=== PATIENT | male | born 1985 | race Caucasian/White ===

== ENCOUNTER 2018-05-13 08:58 | Emergency (ER) | payer BC ==
[2018-05-13] MEDS ORDERED: Sodium Chloride 0.9% 1,000 ML IV ONE (09:13)
--- NOTE | 2018-05-13 09:16 | EDM.PDOC ---
ED HPI GENERAL MEDICAL PROBLEM - General Stated Complaint: FLU SYMPTOMS Time Seen by Provider: 05/13/18 09:07 - History of Present Illness INITIAL COMMENTS - FREE TEXT/NARRATIVE: HISTORY AND PHYSICAL: History of present illness: Patient is a 33-year-old white male with history of seizure disorder who presents with concern approximately 4 days of cough body aches that now is developing some fever and shaking chills he denies shortness of breath there's been no abdominal pain no nausea no vomiting or other complaints he denies influenza immunization this year Review of systems: As per history of present illness and below otherwise all systems reviewed and negative. Past medical history: As per history of present illness and as reviewed below otherwise noncontributory. Surgical history: As per history of present illness and as reviewed below otherwise noncontributory. Social history: No reported history of drug or alcohol abuse. Family history: As per history of present illness and as reviewed below otherwise noncontributory. Physical exam: HEENT: Atraumatic, normocephalic, pupils reactive, negative for conjunctival pallor or scleral icterus, mucous membranes moist, throat clear, neck supple, nontender, trachea midline. Lungs: Clear to auscultation, breath sounds equal bilaterally, chest nontender. Heart: S1S2, regular, negative for clicks, rubs, or JVD. Abdomen: Soft, nondistended, nontender. Negative for masses or hepatosplenomegaly. Negative for costovertebral tenderness. Pelvis: Stable nontender. Genitourinary: Deferred. Rectal: Deferred. Extremities: Atraumatic, negative for cords or calf pain. Neurovascular unremarkable. Neuro: Awake, alert, oriented. Cranial nerves II through XII unremarkable. Cerebellum unremarkable. Motor and sensory unremarkable throughout. Exam nonfocal. Diagnostics: CBC CMP chest x-ray influenza screen blood culture 2 Therapeutics: Normal saline 1 L bolus Impression: #1 viral syndrome Definitive disposition and diagnosis as appropriate pending reevaluation and review of above. - Related Data Allergies Allergy/AdvReac Type Severity Reaction Status Date / Time No Known Allergies Allergy Verified 05/13/18 09:16 Home Meds: Home Meds levETIRAcetam [Keppra] 1.5 mg PO BID 05/13/18 [History] ED ROS GENERAL - Review of Systems Review Of Systems: ROS reveals no pertinent complaints other than HPI. ED EXAM, GENERAL - Physical Exam Exam: See Below (See dictation) Course - Vital Signs Text/Narrative:: Patient emergency room course is been unremarkable he is markedly improved I discussed with him and his that we have not identified any clear source for his symptoms but he has improved I did discuss the viral presentations and other medical conditions are more occult or possible. Blood cultures were obtained U remains nontoxic appearing with stable vital signs Last Recorded V/S: Last Vital Signs Temp 36.1 C 05/13/18 09:17 Pulse 85 05/13/18 09:17 Resp 18 05/13/18 09:17 BP 143/86 H 05/13/18 09:17 Pulse Ox 98 05/13/18 09:17 - Orders/Labs/Meds Orders: Active Orders 24 hr Category Date Time Status CULTURE BLOOD [BC] Stat Lab 05/13/18 09:20 Received CULTURE BLOOD [BC] Stat Lab 05/13/18 09:27 Received Blood Culture x2 Reflex Set [OM.PC] Stat Oth 05/13/18 09:11 Ordered Labs: Laboratory Tests 05/13/18 05/13/18 05/13/18 Range/Units 09:12 09:20 09:20 WBC 7.87 (4.0-11.0) K/uL RBC 5.43 (4.50-5.90) M/uL Hgb 16.3 (13.0-17.0) g/dL Hct 46.9 (38.0-50.0) % MCV 86.4 (80.0-98.0) fL MCH 30.0 (27.0-32.0) pg MCHC 34.8 (31.0-37.0) g/dL RDW Std Deviation 40.7 (28.0-62.0) fl RDW Coeff of Kathi 13 (11.0-15.0) % Plt Count 358 (150-400) K/uL MPV 11.20 (7.40-12.00) fL Neut % (Auto) 65.8 (48.0-80.0) % Lymph % (Auto) 26.0 (16.0-40.0) % [place] % (Auto) 6.9 (0.0-15.0) % Eos % (Auto) 1.0 (0.0-7.0) % Baso % (Auto) 0.3 (0.0-1.5) % Neut # (Auto) 5.2 (1.4-5.7) K/uL Lymph # (Auto) 2.1 (0.6-2.4) K/uL [place] # (Auto) 0.5 (0.0-0.8) K/uL Eos # (Auto) 0.1 (0.0-0.7) K/uL Baso # (Auto) 0.0 (0.0-0.1) K/uL Nucleated RBC % 0.0 /100WBC Nucleated RBCs # 0 K/uL Lactate (0.20-2.00) mmol/L Sodium 144 (136-148) mmol/L Potassium 3.4 L (3.5-5.1) mmol/L Chloride 107 (98-107) mmol/L Carbon Dioxide 25.7 (21.0-32.0) mmol/L BUN 5 L (7.0-18.0) mg/dL Creatinine 1.0 (0.8-1.3) mg/dL Est Cr Clr Drug Dosing 115.32 mL/min Estimated GFR (MDRD) > 60.0 ml/min Glucose 114 H (74-106) mg/dL POC Glucose 102 (60-110) mg/dL Calcium 9.3 (8.5-10.1) mg/dL Total Bilirubin 0.4 (0.2-1.0) mg/dL AST 8 L (15-37) IU/L ALT 17 (14-63) IU/L Alkaline Phosphatase 55 (46-116) U/L Total Protein 7.7 (6.4-8.2) g/dL Albumin 4.3 (3.4-5.0) g/dL Globulin 3.4 (2.6-4.0) g/dL Albumin/Globulin Ratio 1.3 (0.9-1.6) Urine Color Urine Appearance Urine pH (5.0-8.0) Ur Specific [place] (1.001-1.035) Urine Protein (NEGATIVE) mg/dL Urine Glucose (UA) (NEGATIVE) mg/dL Urine Ketones (NEGATIVE) mg/dL Urine Occult Blood (NEGATIVE) Urine Nitrite (NEGATIVE) Urine Bilirubin (NEGATIVE) Urine Urobilinogen (<2.0) EU/dL Ur Leukocyte Esterase (NEGATIVE) 05/13/18 05/13/18 Range/Units 10:10 10:17 WBC (4.0-11.0) K/uL RBC (4.50-5.90) M/uL Hgb (13.0-17.0) g/dL Hct (38.0-50.0) % MCV (80.0-98.0) fL MCH (27.0-32.0) pg MCHC (31.0-37.0) g/dL RDW Std Deviation (28.0-62.0) fl RDW Coeff of Kathi (11.0-15.0) % Plt Count (150-400) K/uL MPV (7.40-12.00) fL Neut % (Auto) (48.0-80.0) % Lymph % (Auto) (16.0-40.0) % [place] % (Auto) (0.0-15.0) % Eos % (Auto) (0.0-7.0) % Baso % (Auto) (0.0-1.5) % Neut # (Auto) (1.4-5.7) K/uL Lymph # (Auto) (0.6-2.4) K/uL [place] # (Auto) (0.0-0.8) K/uL Eos # (Auto) (0.0-0.7) K/uL Baso # (Auto) (0.0-0.1) K/uL Nucleated RBC % /100WBC Nucleated RBCs # K/uL Lactate 1.2 (0.20-2.00) mmol/L Sodium (136-148) mmol/L Potassium (3.5-5.1) mmol/L Chloride (98-107) mmol/L Carbon Dioxide (21.0-32.0) mmol/L BUN (7.0-18.0) mg/dL Creatinine (0.8-1.3) mg/dL Est Cr Clr Drug Dosing mL/min Estimated GFR (MDRD) ml/min Glucose (74-106) mg/dL POC Glucose (60-110) mg/dL Calcium (8.5-10.1) mg/dL Total Bilirubin (0.2-1.0) mg/dL AST (15-37) IU/L ALT (14-63) IU/L Alkaline Phosphatase (46-116) U/L Total Protein (6.4-8.2) g/dL Albumin (3.4-5.0) g/dL Globulin (2.6-4.0) g/dL Albumin/Globulin Ratio (0.9-1.6) Urine Color YELLOW Urine Appearance CLEAR Urine pH 5.5 (5.0-8.0) Ur Specific [place] <= 1.005 (1.001-1.035) Urine Protein NEGATIVE (NEGATIVE) mg/dL Urine Glucose (UA) NEGATIVE (NEGATIVE) mg/dL Urine Ketones NEGATIVE (NEGATIVE) mg/dL Urine Occult Blood NEGATIVE (NEGATIVE) Urine Nitrite NEGATIVE (NEGATIVE) Urine Bilirubin NEGATIVE (NEGATIVE) Urine Urobilinogen 0.2 (<2.0) EU/dL Ur Leukocyte Esterase NEGATIVE (NEGATIVE) Meds: Medications Discontinued Medications Generic Name Dose Route Start Last Admin Trade Name Freq PRN Reason Stop Dose Admin Sodium Chloride 1,000 mls @ 999 mls/hr 05/13/18 09:13 05/13/18 09:32 Normal Saline IV 05/13/18 10:13 999 mls/hr STAT ONE Administration Departure - Departure Time of Disposition: 10:51 Disposition: Home, Self-Care 01 Condition: Good Clinical Impression: Encounter for medical screening examination, Viral syndrome - Discharge Information Referrals: PCP,None [Primary Care Provider] - Additional Instructions: The following information is given to patients seen in the emergency department who are being discharged to home. This information is to outline your options for follow-up care. We provide all patients seen in our emergency department with a follow-up referral. The need for follow-up, as well as the timing and circumstances, are variable depending upon the specifics of your emergency department visit. If you don't have a primary care physician on staff, we will provide you with a referral. We always advise you to contact your personal physician following an emergency department visit to inform them of the circumstance of the visit and for follow-up with them and/or the need for any referrals to a consulting specialist. The emergency department will also refer you to a specialist when appropriate. This referral assures that you have the opportunity for followup care with a specialist. All of these measure are taken in an effort to provide you with optimal care, which includes your followup. Under all circumstances we always encourage you to contact your private physician who remains a resource for coordinating your care. When calling for followup care, please make the office aware that this follow-up is from your recent emergency room visit. If for any reason you are refused follow-up, please contact the [facility] emergency department at and asked to speak to the emergency department charge nurse. Push fluids Motrin/Tylenol as directed follow primary medical doctor as needed as discussed and return as needed as discussed - My Orders Last 24 Hours: My Active Orders 05/13/18 09:11 Blood Culture x2 Reflex Set [OM.PC] Stat 05/13/18 09:20 CULTURE BLOOD [BC] Stat 05/13/18 09:27 CULTURE BLOOD [BC] Stat - Assessment/Plan Last 24 Hours: My Active Orders 05/13/18 09:11 Blood Culture x2 Reflex Set [OM.PC] Stat 05/13/18 09:20 CULTURE BLOOD [BC] Stat 05/13/18 09:27 CULTURE BLOOD [BC] Stat
[2018-05-13 10:00] LABS: CHLORIDE,CL 107 mmol/L (98-107); SODIUM,NA 144 mmol/L (136-148)
--- NOTE | 2018-05-13 10:03 | CR ---
EXAMINATION: Two-view chest (PA and Lateral views). HISTORY: Shortness of breath. FINDINGS: The trachea is midline. The cardiomediastinal silhouette is within normal limits. No pulmonary infiltrates, effusions or pneumothorax. Osseous structures appear unremarkable. IMPRESSION: No acute cardiopulmonary process.
== END 2018-05-13 11:10 | disposition home or self-care (01) ==
LOC: MW.ED 08:58
DX: B34.9 Viral infection, unspecified (principal); G40.909 Epilepsy, unspecified, not intractable, without status epilepticus
CPT/HCPCS: 36415; 71046; 80053; 81003; 82962; 83605; 85025; 87040; 87804; 96360; 99283; J7040